=== PATIENT | female | born 1990 | race American Indian/Alaskan Native ===

== ENCOUNTER 2018-03-19 09:16 | Day surgery (SDC) | payer MEDICAID ==
--- NOTE | 2018-03-19 10:45 | Anesthesia Consultation ---
Anesthesia Consult and Med Hx Date of service: 03/19/18 - Airway Anesthetic Teeth Evaluation: Good ROM Head & Neck: Adequate Mental/Hyoid Distance: Adequate Mallampati Class: Class II Intubation Access Assessment: Probably Good - Pulmonary Exam CTA: Yes - Cardiac Exam Cardiac Exam: RRR - Pre-Operative Health Status ASA Pre-Surgery Classification: ASA2 Proposed Anesthetic Plan: General - Pulmonary Hx Smoking: No Hx Respiratory Symptoms: No - Cardiovascular System Hx Hypertension: No Hx Heart Attack/AMI: No - Central Nervous System Hx Seizures: No CVA: No Hx Psychiatric Problems: No - Gastrointestinal Hx Gastroesophageal Reflux Disease: Yes (omeprazole prn; asymptomatic today) - Endocrine Hx Renal Disease: No Hx Non-Insulin Dependent Diabetes: No Hx Thyroid Disease: No - Other Systems Hx Alcohol Use: Yes (OCCAS) Hx Substance Use: No Hx Obesity: Yes
--- NOTE | 2018-03-19 10:45 | Anesthesia Day of Surgery ---
Anesthesia Day of Surgery - Day of Surgery Patient Examined: Yes Patient H&P Reviewed: Yes Patient is NPO: Yes
[2018-03-19] MEDS ORDERED: LACTATED RINGERS 1,000 ML IV SCH ×2 (11:00)
[2018-03-19] MEDS ORDERED: VERSED IV NR (11:00)
[2018-03-19] MEDS ORDERED: ANCEF/STERILE WATER 2 GM/20 ML IV NR (11:00)
[2018-03-19 11:07] LABS: Hematocrit 34.3 % (30.3-42.9); Hemoglobin 11.4 gm/dl (10.1-14.3); Mean Corpuscular HGB Conc 33 % (30-34); Mean Corpuscular Hemoglobin 28 pg (28-32); Mean Corpuscular Volume 84 fl (79-97); Platelet Count 253 K/mm3 (140-440); Red Blood Count 4.07 M/mm3 (3.65-5.03)
[2018-03-19] MEDS ORDERED: NEURONTIN PO NR (11:30)
[2018-03-19] MEDS ORDERED: DILAUDID IV PRN ×2 (11:30→15:46)
[2018-03-19] MEDS ORDERED: SUBLIMAZE ONE (12:54)
[2018-03-19] MEDS ORDERED: DECADRON ONE (12:54)
[2018-03-19] MEDS ORDERED: ZOFRAN ONE (12:54)
--- NOTE | 2018-03-19 15:19 | Operative Report ---
PREOPERATIVE DIAGNOSIS: Macromastia. POSTOPERATIVE DIAGNOSIS: Macromastia. PROCEDURE: Bilateral reduction mammoplasty. SURGEON: Jaiden Aguiar MD SITE SUPERVISING TECHNICAL OPERATOR: James King CSA FINDINGS: 340 grams removed from the right breast, 320 grams removed from the left breast. DESCRIPTION OF PROCEDURE: The patient was brought to the operating room and placed on the table in supine position. Following administration of general anesthesia, bilateral breasts were prepped with Betadine solution, draped in usual sterile manner. A #10 blade scalpel was used to make a circumareolar skin incision followed by de-epithelization of inferior dermal pedicle. Modified [place] pattern skin markings were incised with scalpel, deepened through subcutaneous fat and breast tissue using electrocautery. Skin flaps were raised approximately 2.5 cm in thickness superiorly maintaining an inferior central mound pedicle. Breast tissue was resected laterally and medially, sent to pathology as a specimen. Hemostasis controlled using electrocautery. Closure was performed over 10 mm NORMAN drains using interrupted and running subcuticular 2-0 Monocryl sutures. Mastisol, Steri-Strips, and sterile dressings applied. The patient tolerated the procedure well and returned to recovery room in stable condition. JOB# [id number] FTW/NTS
[2018-03-19] MEDS ORDERED: DILAUDID ONE (15:24)
[2018-03-19] MEDS ORDERED: XYLOCAINE MPF 2% ONE (15:24)
[2018-03-19] MEDS ORDERED: DIPRIVAN 10 MG/ML IV ONE (15:25)
[2018-03-19] MEDS ORDERED: PERCOCET 5/325 PO PRN (15:46)
[2018-03-19] MEDS ORDERED: ZOFRAN IV PRN (15:46)
[2018-03-19] MEDS ORDERED: TORADOL IV PRN (15:46)
[2018-03-19] MEDS: DILAUDID IV PRN ×2 (15:50→16:00)
[2018-03-19 18:42] VITALS: BP 121/74
--- NOTE | 2018-03-21 11:20 | Post Anesthesia Evaluation ---
- Post Anesthesia Evaluation Patient Participated: Yes Airway Patent: Yes Stable Respiratory Function: Yes Nausea/Vomiting: No Temp > 96.8F: No Pain Manageable: Yes Adequeate Hydration: Yes Anesthesia Complications: No
== END 2018-03-19 18:44 | disposition home or self-care (01) ==
LOC: OR 09:16
PROVIDERS: ATTEND Plastic Surgery
DX: N62 Hypertrophy of breast (principal); N64.89 Other specified disorders of breast; E78.00 Pure hypercholesterolemia, unspecified; K21.9 Gastro-esophageal reflux disease without esophagitis; M19.90 Unspecified osteoarthritis, unspecified site; M54.2 Cervicalgia; E66.9 Obesity, unspecified; Z68.31 Body mass index [BMI] 31.0-31.9, adult; Z98.890 Other specified postprocedural states; Z98.51 Tubal ligation status; Z72.89 Other problems related to lifestyle
CPT/HCPCS: 19318; 36415; 81025; 85027; 88305; J0690; J1100; J1170; J1885; J2250; J2405; J2704; J3010; J7120